=== PATIENT | female | born 1970 | race African-American/Black ===

== ENCOUNTER 2017-02-13 10:31 | Emergency (ER) | payer OTHER ==
[~2017-02-13 10:31] MED LIST: CIPRO PO
[2017-02-13 11:05] LABS: URINE SOURCE CLEAN CATCH
[2017-02-13 11:27] LABS: URINE APPEARANCE CLEAR; URINE BILIRUBIN NEG (NEG); URINE BLOOD NEG (NEG); URINE COLOR YELLOW; URINE GLUCOSE NEG (NEG); URINE KETONE NEG (NEG); URINE LEUKOCYTE ESTERASE NEG (NEG); URINE NITRATE NEG (NEG); URINE PROTEIN NEG (NEG); URINE SPECIFIC GRAVITY 1.027 (1.003-1.035)
[2017-02-13 11:33] LABS: CULTURE INDICATED? NO
[2017-02-18 03:38] LABS: CHLAMYDIA TRACH Not Detected (Not Detected); N GONOR Not Detected (Not Detected)
== END 2017-02-13 12:05 | disposition home or self-care (01) ==
LOC: CED 10:31
PROVIDERS: Physician Assistant Medical
DX: N76.0 Acute vaginitis (principal); F17.210 Nicotine dependence, cigarettes, uncomplicated; Z98.51 Tubal ligation status; Z98.890 Other specified postprocedural states; Z88.0 Allergy status to penicillin
CPT/HCPCS: 81003; 84703; 87491; 87591; 87808; 87905; 99284